=== PATIENT | male | born 1965 | race Two or more races ===

== ENCOUNTER 2020-11-20 14:34 | Emergency (ER) | payer SELFPAY ==
[~2020-11-20] VITALS: Ht 180.3 cm; Wt 78.0 kg
[2020-11-20 15:18] VITALS: BP 108/71
== END 2020-11-20 15:34 | disposition left against medical advice (07) ==
LOC: ER 14:34
DX: R41.82 Altered mental status, unspecified (principal)
CPT/HCPCS: 99283

== ENCOUNTER 2020-12-04 07:30 | Emergency (ER) | payer SELFPAY ==
[~2020-12-04] VITALS: Ht 180.3 cm; Wt 76.0 kg
[2020-12-04 07:31] VITALS: BP 126/80
== END 2020-12-04 07:58 | disposition home or self-care (01) ==
LOC: ER 07:30
DX: G93.49 Other encephalopathy (principal)
CPT/HCPCS: 99283

== ENCOUNTER 2021-05-04 12:26 | Emergency (ER) | payer MEDICAID, OTHER ==
[~2021-05-04] VITALS: Ht 172.7 cm; Wt 68.0 kg
[2021-05-04 13:21] LABS: BASOPHILS % 0.3 % (0.0-2.0); EOSINOPHILS % 1.9 % (0.0-5.0); HEMATOCRIT. 40.2 % (42.0-52.0); HEMOGLOBIN. 13.5 g/dL (14.0-18.0); LYMPHOCYTES % 23.7 % (20.0-50.0); MEAN CORPUSCULAR HEMOGLOBIN 32.8 pg (28.0-32.0); MEAN CORPUSCULAR VOLUME 97.9 fL (80.0-94.0); MONOCYTES % 7.6 % (2.0-8.0); NEUTROPHILS % 66.5 % (40.0-76.0); PLATELET 246 x1000/uL (130-400); RED CELL DISTRIBUTION WIDTH 13.2 % (11.6-14.6)
[2021-05-04 13:29] LABS: CHLORIDE 110 mEq/L (98-107)
[2021-05-04 13:36] LABS: ETHANOL BLOOD < 10 mg/dL
[2021-05-04 13:41] LABS: CREATINE KINASE 31 IU/L (39-308)
[2021-05-04] MEDS ORDERED: POTASSIUM CHLORIDE 20MEQ TABLET SR PO NR (15:00)
[2021-05-04 15:30] VITALS: BP 110/66
== END 2021-05-04 15:38 | disposition home or self-care (01) ==
LOC: ER 12:43
DX: E87.6 Hypokalemia (principal); R41.0 Disorientation, unspecified; R73.9 Hyperglycemia, unspecified; I10 Essential (primary) hypertension; D64.9 Anemia, unspecified; R94.31 Abnormal electrocardiogram [ECG] [EKG]; Z59.00 Homelessness unspecified
CPT/HCPCS: 36415; 71045; 80053; 80320; 82140; 82550; 85025; 93005; 99285; G0480